=== PATIENT | male | born 1985 | race Caucasian/White ===

== ENCOUNTER 2018-09-12 01:08 | Emergency (ER) | payer BC ==
[~2018-09-12] VITALS: Ht 177.8 cm; Wt 61.4 kg
[2018-09-12] MEDS ORDERED: dayquil (01:14)
[2018-09-12] MEDS ORDERED: FLON1SPR NARES (01:15)
--- NOTE | 2018-09-12 01:57 | REP ---
Clinical: Cough . Comparison: 07/22/2015 . Technique: PA and lateral. Findings: The mediastinum and cardiac silhouette are normal. The lung flower are clear and without acute consolidation, effusion, or pneumothorax. The skeletal structures are intact and normal. Impression: 1. No acute cardiopulmonary process. Electronically Signed by Tigre Brooks MD 09/12/2018 01:49 A
[2018-09-12 02:15] LABS: INFLUENZA A AMPLIFICATION NEGATIVE (NEGATIVE); INFLUENZA B AMPLIFICATION NEGATIVE (NEGATIVE)
[2018-09-12] MEDS ORDERED: PRED20TA PO (02:42)
[2018-09-12] MEDS ORDERED: TESS100C PO (02:42)
[2018-09-12] MEDS ORDERED: predniSONE 20 MG TAB PO ONE (02:45)
[2018-09-12] MEDS ORDERED: ALBUTEROL 90 MCG/ACT 8GM HFA INHALER INH ONE (02:45)
[2018-09-12] MEDS ORDERED: BENZONATATE 100 MG CAP PO ONE (02:45)
[2018-09-12 03:06] VITALS: BP 158/83
== END 2018-09-12 03:13 | disposition home or self-care (01) ==
LOC: M ED 01:08
DX: J20.9 Acute bronchitis, unspecified (principal)

== ENCOUNTER → 2020-02-11 | Outpatient (CLI) | payer BC ==
[~2020-02-11] MED LIST: FLON1SPR NARES; PRED20TA PO; TESS100C PO; dayquil
--- NOTE | 2020-02-19 06:36 | REP ---
LIMITED ABDOMINAL SONOGRAPHY: PERIUMBILICAL PAIN AND SMALL MASS QUESTION HERNIA. ABDOMINAL WALL ULTRASOUND COMPARISON: CT study of the abdomen from 02/13/2005. SONOGRAPHIC FINDINGS: Scanning of the anterior abdominal wall at the level of the umbilicus using Standoff gel is performed without and with Valsalva maneuver. There is a small anterior abdominal wall defect measuring 9 mm at rest and 12 mm in breath at Valsalva. Through this, a small quantity of abdominal fat protrudes with Valsalva and partially reduces at rest. No bowel content is seen. IMPRESSION: Small umbilical hernia transmitting a small quantity of abdominal fat. MTDD
== END ==
LOC: M RAD 07:08
PROVIDERS: ATTEND Physician Assistant Medical
DX: R10.33 Periumbilical pain (principal); K42.9 Umbilical hernia without obstruction or gangrene

== ENCOUNTER → 2020-04-16 | Outpatient (REF) | payer BC | LOC: M LAB REF 17:24 | PROVIDERS: ATTEND Dermatology | DX: L72.11 Pilar cyst (principal) ==

== ENCOUNTER → 2021-07-25 | Outpatient (REF) | payer BC ==
[2021-07-25 16:46] LABS: HEMATOCRIT 50.5 % (42.0-52.0)
[2021-07-25 17:14] LABS: FERRITIN 207 NG/ML (26-388); IRON (FE) 66 UG/DL (65-175); PERCENT SATURATION 21.2 % (19.7-50.0); TOTAL IRON BINDING CAPACITY 311 UG/DL (250-450)
[2021-07-25 17:22] LABS: VITAMIN B12 LEVEL 592 PG/ML (247-911)
[2021-07-25 17:34] LABS: HEPATITIS B SURFACE ANTIGEN NEGATIVE (NEGATIVE)
[2021-07-25 18:02] LABS: HEPATITIS B CORE ANTIBODY IGM NEGATIVE (NEGATIVE); HEPATITIS C VIRUS ABY INDEX 0.2 INDEX (<0.8)
== END ==
LOC: M LAB REF 16:12
PROVIDERS: ATTEND Nurse Practitioner Adult Health
DX: R74.8 Abnormal levels of other serum enzymes (principal)

== ENCOUNTER → 2021-08-15 | Outpatient (CLI) | payer BC | LOC: M RAD 07:38 | PROVIDERS: ATTEND Nurse Practitioner Adult Health | DX: R74.01 Elevation of levels of liver transaminase levels (principal); K76.0 Fatty (change of) liver, not elsewhere classified ==

== ENCOUNTER → 2022-07-18 | Outpatient (CLI) | payer OTHER | LOC: M RAD 08:30 | PROVIDERS: ATTEND Nurse Practitioner Adult Health | DX: M79.672 Pain in left foot (principal); M25.572 Pain in left ankle and joints of left foot ==

== ENCOUNTER → 2022-07-27 | Outpatient (CLI) | payer OTHER | LOC: M PLAIMG 11:11 | PROVIDERS: ATTEND Nurse Practitioner Adult Health | DX: M25.572 Pain in left ankle and joints of left foot (principal) ==

== ENCOUNTER → 2022-07-31 | Outpatient (REF) | payer OTHER | LOC: M LAB REF 12:03 | PROVIDERS: ATTEND Nurse Practitioner Adult Health | DX: R21 Rash and other nonspecific skin eruption (principal); L02.419 Cutaneous abscess of limb, unspecified ==

== ENCOUNTER → 2022-08-28 | Outpatient (REF) | payer OTHER | LOC: M LAB REF 12:35 | PROVIDERS: ATTEND Nurse Practitioner Adult Health | DX: B95.62 Methicillin resistant Staphylococcus aureus infection as the cause of diseases classified elsewhere (principal) ==

== ENCOUNTER → 2023-02-21 | Outpatient (REF) | payer OTHER | LOC: M LABSMT 09:03 | PROVIDERS: ATTEND Urology | DX: Z30.2 Encounter for sterilization (principal) ==

== ENCOUNTER 2023-07-10 08:27 | Outpatient (RCR) | payer OTHER | END 2023-07-12 | LOC: M ST 08:27 | PROVIDERS: ATTEND Nurse Practitioner Adult Health | DX: F98.5 Adult onset fluency disorder (principal) ==

== ENCOUNTER 2023-08-06 09:30 | Outpatient (RCR) | payer OTHER | END 2023-08-12 | LOC: M ST 09:30 | PROVIDERS: ATTEND Nurse Practitioner Adult Health | DX: F98.5 Adult onset fluency disorder (principal) ==

== ENCOUNTER 2023-08-14 09:01 | Outpatient (RCR) | payer OTHER | END 2023-09-11 | LOC: M ST 09:01 | PROVIDERS: ATTEND Nurse Practitioner Adult Health | DX: F80.81 Childhood onset fluency disorder (principal) ==

== ENCOUNTER 2024-09-06 16:53 | Emergency (ER) | payer OTHER ==
[~2024-09-06] VITALS: Ht 177.8 cm; Wt 113.0 kg
[2024-09-06 16:57] VITALS: TEMP 97.5
[2024-09-06 18:09] LABS: BASO % 0.7 % (0.0-1.0); EOS # 0.1 10^3/uL (0.0-0.5); EOS % 2.2 % (0.0-3.0); HEMATOCRIT 46.9 % (42.0-52.0); HEMOGLOBIN 16.2 g/dl (13.5-17.5); LYMPH # 0.9 10^3/uL (1.5-5.0); LYMPH % 22.2 % (24.0-44.0); MEAN CORPUSCULAR HEMOGLOBIN 28.8 pg (27.0-33.0); MEAN CORPUSCULAR HGB CONC 34.5 g/dl (32.0-36.5); MEAN CORPUSCULAR VOLUME 83.5 fl (80.0-96.0); MONO # 0.8 10^3/uL (0.0-0.8); MONO % 20.2 % (2.0-8.0); NEUTROPHILS # 2.3 10^3/uL (1.5-8.5); NEUTROPHILS % 54.5 % (36.0-66.0); PLATELET COUNT, AUTOMATED 146 10^3/uL (150-450); RED BLOOD COUNT 5.62 10^6/uL (4.30-6.10); WHITE BLOOD COUNT 4.2 10^3/uL (4.0-10.0)
[2024-09-06 18:25] LABS: INR 0.97; PROTHROMBIN TIME 13.2 SECONDS (12.5-14.5)
[2024-09-06 18:35] LABS: LIPASE 39 U/L (12-53)
[2024-09-06 18:37] LABS: ALBUMIN 3.7 G/DL (3.2-5.2); ALKALINE PHOSPHATASE 62 U/L (40-129); ALT/SGPT 79 U/L (7.0-40); AST/SGOT 31 U/L (<34); BILIRUBIN,DIRECT 0.1 MG/DL (<0.4); BILIRUBIN,TOTAL 0.5 MG/DL (0.3-1.2); BLOOD UREA NITROGEN 10 MG/DL (9-23); CALCIUM LEVEL 8.3 MG/DL (8.5-10.1); CARBON DIOXIDE LEVEL 26 MMOL/L (20-31); CHLORIDE LEVEL 107 MMOL/L (98-107); CREATININE FOR GFR 0.87 MG/DL (0.70-1.30); GLOMERULAR FILTRATION RATE > 90.0 (>60); GLUCOSE, FASTING 130 MG/DL (60-100); POTASSIUM SERUM 3.5 MMOL/L (3.5-5.1); SODIUM LEVEL 141 MMOL/L (136-145); TOTAL PROTEIN 6.5 G/DL (5.7-8.2)
[2024-09-06] MEDS: LIDOCAINE VISCOUS 2% SOLN 15ML UDC PO ONE (18:37)
[2024-09-06] MEDS: SUCRALFATE SUSP 1GM/10ML UD PO ONE (18:37)
[2024-09-06] MEDS: MAALOX 30 ML SUSP *UDC PO ONE (18:37)
[2024-09-06 18:38] LABS: CK-MB VALUE MASS < 1.0 NG/ML (<3.6)
[2024-09-06 18:59] LABS: CPK CREATINE PHOSPHOKINASE 151 U/L (46-171); MB/CK RELATIVE INDEX 0.66 (< OR =4)
[2024-09-06 19:30] VITALS: BP 161/92; O2SAT 95
[2024-09-06] MEDS ORDERED: BENZ200C70 PO (19:31)
[2024-09-06] MEDS ORDERED: OSEL75CA PO (19:31)
[2024-09-06] MEDS ORDERED: ONDA-282 PO (19:31)
[2024-09-06] MEDS ORDERED: PANT40TA29 PO (19:31)
[2024-09-06] MEDS: BENZONATATE 100MG CAPSULE PO ONE (19:47)
== END 2024-09-06 19:50 | disposition home or self-care (01) ==
LOC: M ED 16:53
DX: J10.1 Influenza due to other identified influenza virus with other respiratory manifestations (principal); M94.0 Chondrocostal junction syndrome [Tietze]; K30 Functional dyspepsia; I10 Essential (primary) hypertension; F41.9 Anxiety disorder, unspecified; F32.A Depression, unspecified; F17.200 Nicotine dependence, unspecified, uncomplicated; Z91.048 Other nonmedicinal substance allergy status; Z79.899 Other long term (current) drug therapy; Z79.52 Long term (current) use of systemic steroids

== ENCOUNTER → 2024-11-18 | Outpatient (CLI) | payer OTHER ==
[~2024-11-18] MED LIST changes: +BENZ200C70 PO; +ONDA-282 PO; +OSEL75CA PO; +PANT40TA29 PO
[2024-11-18 10:22] LABS: PLATELET COUNT, AUTOMATED 205 10^3/uL (150-450)
[2024-11-18 10:47] LABS: ALT/SGPT 75 U/L (7.0-40); AST/SGOT 31 U/L (<34); CALCIUM LEVEL 9.1 MG/DL (8.5-10.1); CARBON DIOXIDE LEVEL 26 MMOL/L (20-31); CHLORIDE LEVEL 108 MMOL/L (98-107); CHOLESTEROL LEVEL 173 MG/DL (<200); CHOLESTEROL RISK RATIO 6.40 (<5); CREATININE FOR GFR 0.93 MG/DL (0.70-1.30); GLOMERULAR FILTRATION RATE > 90.0 (>60); LDL CHOLESTEROL 91.2 MG/DL (<100); NON-HDL-C 146.0 MG/DL; POTASSIUM SERUM 3.7 MMOL/L (3.5-5.1); SODIUM LEVEL 144 MMOL/L (136-145); TRIGLYCERIDES LEVEL 274 MG/DL (<150)
[2024-11-18 11:21] LABS: ESTIMATED AVERAGE GLUCOSE 117.0 MG/DL (60-110)
== END ==
LOC: M LAB 09:09
PROVIDERS: ATTEND Registered Nurse
DX: Z00.00 Encounter for general adult medical examination without abnormal findings (principal); R73.03 Prediabetes; E78.5 Hyperlipidemia, unspecified

== ENCOUNTER 2025-02-16 02:15 | Emergency (ER) | payer OTHER ==
[~2025-02-16] VITALS: Ht 177.8 cm; Wt 111.4 kg
[2025-02-16 03:44] LABS: BASO # 0.1 10^3/uL (0.0-0.2); BASO % 0.8 % (0.0-1.0); EOS # 0.1 10^3/uL (0.0-0.5); EOS % 1.8 % (0.0-3.0); LYMPH # 2.0 10^3/uL (1.5-5.0); LYMPH % 31.7 % (24.0-44.0); MONO # 0.7 10^3/uL (0.0-0.8); MONO % 11.7 % (2.0-8.0); NEUTROPHILS # 3.3 10^3/uL (1.5-8.5); NEUTROPHILS % 53.7 % (36.0-66.0); PLATELET COUNT, AUTOMATED 200 10^3/uL (150-450)
[2025-02-16 03:59] LABS: INR 0.99
[2025-02-16 04:10] LABS: CALCIUM LEVEL 8.7 MG/DL (8.5-10.1); CARBON DIOXIDE LEVEL 28 MMOL/L (20-31); CHLORIDE LEVEL 106 MMOL/L (98-107); CK-MB VALUE MASS 1.0 NG/ML (<3.6); CREATININE FOR GFR 0.96 MG/DL (0.70-1.30); GLOMERULAR FILTRATION RATE > 90.0 (>60); POTASSIUM SERUM 4.3 MMOL/L (3.5-5.1); SODIUM LEVEL 141 MMOL/L (136-145)
[2025-02-16 04:12] LABS: FREE T4 1.02 NG/DL (0.89-1.76)
[2025-02-16 04:13] LABS: CPK CREATINE PHOSPHOKINASE 108 U/L (46-171); MB/CK RELATIVE INDEX 0.92 (< OR =4)
[2025-02-16 05:25] LABS: CK-MB VALUE MASS 1.0 NG/ML (<3.6)
[2025-02-16 05:26] LABS: CPK CREATINE PHOSPHOKINASE 110 U/L (46-171); MB/CK RELATIVE INDEX 0.90 (< OR =4)
[2025-02-16] MEDS: KETOROLAC 30 MG/ML 1 ML VIAL IV ONE (06:45)
[2025-02-16] MEDS ORDERED: METH-1164 PO (06:50)
[2025-02-16 07:15] VITALS: BP 140/88; TEMP 96.7; O2SAT 99
== END 2025-02-16 07:15 | disposition home or self-care (01) ==
LOC: M ED 02:15
DX: M94.0 Chondrocostal junction syndrome [Tietze] (principal); M62.838 Other muscle spasm; E78.5 Hyperlipidemia, unspecified; F17.290 Nicotine dependence, other tobacco product, uncomplicated; F10.10 Alcohol abuse, uncomplicated; Z91.048 Other nonmedicinal substance allergy status; Z79.899 Other long term (current) drug therapy; Z79.52 Long term (current) use of systemic steroids
CPT/HCPCS: 71045; 80048; 82550; 82553; 83880; 84439; 84443; 84484; 85025; 85610; 85730; 93005; 93041; 94760; 96374; 99285; J1885